=== PATIENT | male | born 2000 | race Caucasian/White ===

== ENCOUNTER 2022-08-08 10:53 | Emergency (ER) | payer MEDICAID, SELFPAY ==
[2022-08-08 10:56] VITALS: BP 113/62; PULSE 82; RESP 18; TEMP 36.4; O2SAT 97; BMI 22.4
[2022-08-08 11:16] LABS: IDNOW Serial# 08D9AD1C; Strep A Nucleic Acid Positive (Negative)
--- NOTE | 2022-08-08 12:22 | ED_ITS ---
HPI - URI/Sore Throat General Chief Complaint: Upper Respiratory Symptoms Stated Complaint: Sore throat Time Seen by Provider: 08/08/22 11:06 Source: patient Mode of arrival: ambulatory History of Present Illness HPI Narrative: 22-year-old male with no significant past medical history presenting to the ED complaining mild sore throat x a few days. Reports noted some white spots/ulcers to back of throat which were tender. Reports was recently tested for STIs, routinely, and negative for all. Denies difficulty/inability to swallow, fever, chills, cough, ear pain MD elicited complaint: sore throat Related Data Previous Rx's Medication Instructions Recorded penicillin V potassium 500 mg 500 mg PO BID 7 days #14 tabs 08/08/22 tablet Allergies Allergy/AdvReac Type Severity Reaction Status Date / Time No Known Allergies Allergy Verified 08/08/22 10:58 [No Known Allergies*] Review of Systems Review of Systems: Constitutional: No Fever, No Chills ENT/Mouth: No Ear Pain, No Nasal Congestion, No Sinus Pain, No Hoarseness, +sore throat, No Rhinorrhea, No Swallowing Difficulty Cardiovascular: No Chest Pain, No SOB Respiratory: No Cough, No Sputum, No Wheezing Gastrointestinal: No Nausea, No Vomiting, No Diarrhea, No Constipation, No Abdominal pain Genitourinary: No Dysuria, No Urinary Incontinence/retention Musculoskeletal: No joint pain, No Myalgias, No Joint Swelling Skin: No Skin Lesions, No rash Neuro: No Weakness Yes all other systems are reviewed and are negative Constitutional: Constitutional: Reports as per [facility] Past Medical History Attestation statement: The following information was validated with the patient. Social History Social History Advance Directives: No Advance Directives Information Provided: Yes Physical Exam Vital Signs: Vital Signs: Last Vital Signs Temp 97.6 F 08/08/22 10:56 Pulse 82 08/08/22 10:56 Resp 18 08/08/22 10:56 BP 113/62 08/08/22 10:56 Pulse Ox 97 08/08/22 10:56 O2 Del Method Room Air 08/08/22 10:56 BMI result Body Mass Index 22.4 Const: General: cooperative, healthy appearing, no acute distress, alert and awake Orientation/consciousness: patient oriented x3 Limitations: no limitations HEENT: Head: Yes normal to inspection and Yes atraumatic Ears: hearing grossly normal bilaterally, TM's normal bilaterally and mastoids normal General nose exam: Normal external nose present Face and sinus: Yes normal facial exam Throat: Yes uvula midline, Yes abnormal tonsil (mild swelling bilaterally ), No peritonsillar mass, Yes posterior oropharynx abnormal (erythematous, small ulcers/canker sores to left soft palate), No uvula laterally displaced and No uvular edema Eyes: General: appearance normal, both eyes and all related structures EOM: EOMs intact bilaterally Neck: Neck: Yes normal visual inspection, Yes no meningeal signs, Yes supple and No anterior neck swelling Resp: Effort & Inspection: normal respiratory effort and no respiratory distress Auscultation: clear to auscultation bilaterally Cardio: Rate: regular rate Heart sounds: S1 normal heart sound present and S2 normal heart sound present Skin: Rashes: no rashes Wounds: no wounds Neuro: General: patient oriented x3, tone normal and no meningeal signs Gait exam (Neuro): Normal gait present Extrem: General: Yes normal to inspection Course Course Course Narrative: -rapid strep positive -will hold on empiric herpes treatment until culture results Results discussed with patient including worrisome signs and symptoms and strict return precautions, and when to return to the emergency department. They verbalized understanding and feel safe for discharge at this time. Medical Decision Making Medical Decision Making [facility] Narrative: 22-year-old male with no significant past medical history presenting to the ED complaining mild sore throat x a few days. On exam vital signs stable, nontoxic appearing, uvula midline, posterior or pharyngeal erythema with mild tonsillar swelling and ulcer/canker sores noted to posterior phalanx/soft palate. No evidence of MANAGER TRAVEL. Talking in complete sentences, no stridor. Concern for strep pharyngitis vs ? Herpes. Lower suspicion for STI with recent negative testing. No evidence of MANAGER TRAVEL. Plan: Rapid strep, herpes culture Please refer to course for remaining clinical decision making, interpretation of labs/imaging results, and discussions with consultants and/or family members. Differential Diagnosis Differential Diagnoses: The differential diagnosis associated with the presentation includes As above Admission/Observation Consideration of admission/observation: Escalation of care including admission/observation considered Lab Data [facility] Lab Attestation statement: I reviewed the patient's lab results. Labs: Lab Results 08/08/22 Range/Units 11:02 S. pyogenes GrpA MOHAN Positive A (Negative) Radiology Impression Discussion of test interpretation with radiology: I have reviewed the radiologist's reading. External Record Review External record reviewed: Inpatient record, Office record, Outpatient record, Prior outpatient labs, Prior outpatient radiology, Primary care record and Outside ED record Discharge Plan Discharge Clinical Impression: Acute streptococcal pharyngitis Patient Disposition: Home, Self-Care Instructions: Strep Throat (DC) Additional Instructions: You have strep throat. Penicillin is antibiotic please take as prescribed. Gargle with warm salt water. Take Tylenol/ Motrin as needed. Follow up with her doctor. If symptoms persist or worsen return to the ED Prescriptions: New penicillin V potassium 500 mg tablet 500 mg PO BID 7 Days Qty: 14 0RF Referrals: Physician,None [Primary Care Provider] - 5 days Interventions: ED Discharge Assessment Last Done: 08/08/22 12:28 Discharge Date/Time: 08/08/22 12:29
== END 2022-08-08 12:29 | disposition home or self-care (01) ==
PROVIDERS: Physician Assistant; Emergency Provider Student in an Organized Health Care Education/Training Program
DX: J02.0 Streptococcal pharyngitis (principal)
CPT/HCPCS: 36415; 87255; 87651; 99282; 99283

== ENCOUNTER 2022-08-11 15:08 | Emergency (ER) | payer MEDICAID, SELFPAY | END 2022-08-11 17:50 | disposition left against medical advice (07) | PROVIDERS: Emergency Provider Emergency Medicine | DX: J02.0 Streptococcal pharyngitis (principal) ==

== ENCOUNTER 2022-08-12 02:33 | Emergency (ER) | payer MEDICAID, SELFPAY ==
[2022-08-12 02:45] VITALS: BP 128/83; PULSE 111; RESP 16; TEMP 36.6; O2SAT 98; BMI 22.4
[2022-08-12 03:03] LABS: Hematocrit 47.8 % (42.0-52.0); Hemoglobin 16.7 g/dl (14.0-18.0); Mean Corpuscular HGB Conc 34.9 g/dl (31.0-36.0); Mean Corpuscular Hemoglobin 29.2 pg (27.0-33.0); Mean Corpuscular Volume 83.7 fL (80.0-98.0); Mean Platelet Volume 10.3 fL (9.4-12.4); Platelet Count 319 X10*3/uL (160-400); Red Blood Count 5.71 X10*6/uL (4.60-5.80); Red Cell Distribution Width 12.2 % (11.0-16.0); White Blood Count 23.4 X10*3/uL (4.8-10.8)
--- NOTE | 2022-08-12 03:17 | ED_ITS ---
HPI - General Adult General Chief complaint: General Medical Stated complaint: hemorrhoids Time Seen by Provider: 08/12/22 02:52 History of Present Illness HPI narrative: Patient is a 22-year-old male presents today with having pain to his gluteal area. Patient claims the pain is been ongoing for a week and half. Getting worse can take it no more decided come in today. The pain is not made worse with bowel movement. Made worse with movement in general. Denies any fever chills. No systemic complaints. Has no significant past medical history. Related Data Previous Rx's Medication Instructions Recorded penicillin V potassium 500 mg 500 mg PO BID 7 days #14 tabs 08/08/22 tablet doxycycline hyclate 100 mg capsule 100 mg PO BID cough 7 days #14 caps 08/12/22 ibuprofen 400 mg tablet 400 mg PO Q6H PRN pain #20 tabs 08/12/22 Allergies Allergy/AdvReac Type Severity Reaction Status Date / Time No Known Allergies Allergy Verified 08/08/22 10:58 [No Known Allergies*] Review of Systems Review of Systems: No fever no chills no systemic complaint Yes all other systems are reviewed and are negative [facility] Past Medical History Attestation statement: The following information was validated with the patient. Social History Social History Alcohol intake: current Alcohol intake frequency: holidays/special occasions only Smoked in Last 30 Days: No Use of substances other than those prescribed or required for medical reasons: Yes Substance Use Type: Marijuana Substance Use Frequency: Daily Advance Directives: No Physical Exam ED Vital Signs: Vital Signs - 24 hr 08/12/22 02:45 Temperature 98 F Pulse Rate 111 H Respiratory Rate 16 Blood Pressure 128/83 Pulse Oximetry 98 Oxygen Delivery Method Room Air BMI result Body Mass Index 22.4 Appearance: Alert. Oriented X3. No acute distress. Eyes: Pupils equal, round and reactive to light. ENT: Pharynx normal. Neck: Normal inspection. Neck supple. No lymph nodes noted. No crepitus CVS: Normal heart rate and rhythm. Pulses normal. Normal S1 and S2 Respiratory: No respiratory distress. Breath sounds normal. No Wheezing. No rales Abdomen: Soft and nontender. No rigidity. No distention. good BS x4 Skin: Skin warm and dry. Normal skin color. Normal skin turgor. Rectal exam showed normal anus. In the area just inferior to the anus there is an large indurated fluctuant mass that is approximately 4 cm x 3 cm in size. Not affecting the anus. Extremities: No lower extremity edema. Neurovascular intact to all extremities. No Lacerations. No Rash Neuro: Oriented X 3. No motor deficit. No sensory deficit. Moving all extermities. No slurred speech Medications Administered Discontinued Medications Generic Name Dose Route Start Last Admin Trade Name Claudia PRN Reason Stop Dose Admin Lidocaine HCl 10 ml 08/12/22 03:16 08/12/22 03:29 Lidocaine Hcl 1 % Mpf 5 Ml Vial SUBCUT 08/12/22 03:17 10 ml ONCE ONE Administration Procedures Abscess I/D Site: danny-rectal Side (if applicable): left Local Anesthetic: lidocaine 1% Amount of anesthesia used (mL): 10 Technique: needle aspiration and incised with blade Amount of fluid expressed (mL): 15 Sent for culture/gram staining?: Yes Irrigation: Yes Packing used?: plain Medical Decision Making Medical Decision Making [facility] Narrative: Patient's symptoms consistent with having a large abscess to the gluteal area. Case discussed with patient. Risk and benefit of IN D discussed. Patient agreed to the procedure. Will drain the abscess. Will have patient follow-up on an outpatient basis in 2 days. Will start antibiotic on an outpatient basis. In stable condition. Differential Diagnosis Differential Diagnoses: The differential diagnosis associated with the presentation includes Abscess, hemorrhoid Lab Data [facility] Lab Attestation statement: I reviewed the patient's lab results. 08/12/22 02:57 08/12/22 02:57 Labs: Lab Results 08/12/22 08/12/22 Range/Units 02:57 02:57 WBC 23.4 H (4.8-10.8) X10*3/uL RBC 5.71 (4.60-5.80) X10*6/uL Hgb 16.7 (14.0-18.0) g/dl Hct 47.8 (42.0-52.0) % MCV 83.7 (80.0-98.0) fL MCH 29.2 (27.0-33.0) pg MCHC 34.9 (31.0-36.0) g/dl RDW 12.2 (11.0-16.0) % Plt Count 319 (160-400) X10*3/uL MPV 10.3 (9.4-12.4) fL Absolute Nucleated RBC 0.000 (0.0-0.012) X10*3/uL Nucleated RBC % (auto) 0.0 (0.0-0.2) /100WBC Sodium 132 L (135-145) mmol/L Potassium 3.8 (3.3-5.1) mmol/L Chloride 96 (96-108) mmol/L Carbon Dioxide 21 L (22-29) mmol/L Anion Gap 19 (12-20) BUN 21 H (9-16) mg/dL Creatinine 1.28 (0.5-1.4) mg/dL Estim Creat Clear Calc 95.0 Estimated GFR > 60 Random Glucose 124 H (60-115) mg/dL Calcium 9.6 (8.4-10.2) mg/dL Total Bilirubin 0.7 (0.0-1.0) mg/dL AST 14 (5-37) U/L ALT 10 (0-40) U/L Alkaline Phosphatase 108 (39-117) U/L Total Protein 8.1 H (6.5-8.0) g/dL Albumin 4.5 (3.5-5.0) g/dL Discharge Plan Discharge Clinical Impression: Abscess, Encounter for incision and drainage procedure Patient Disposition: Home, Self-Care Instructions: Abscess (ED), Abscess Follow-up (ED), Incision and Drainage (ED) Prescriptions: New doxycycline hyclate 100 mg capsule 100 mg PO BID 7 Days Qty: 14 0RF ibuprofen 400 mg tablet 400 mg PO Q6H PRN (Reason: pain) Qty: 20 0RF No Action penicillin V potassium 500 mg tablet 500 mg PO BID 7 Days Qty: 14 0RF Referrals: Dominguez,Syeda Kline MD [Emergency Provider] - 08/15/22
[2022-08-12 03:23] LABS: Alanine Aminotransferase 10 U/L (0-40); Albumin Level 4.5 g/dL (3.5-5.0); Alkaline Phosphatase 108 U/L (39-117); Anion Gap 19 (12-20); Aspartate Amino Transferase 14 U/L (5-37); Bilirubin Total 0.7 mg/dL (0.0-1.0); Blood Urea Nitrogen 21 mg/dL (9-16); Calcium 9.6 mg/dL (8.4-10.2); Carbon Dioxide 21 mmol/L (22-29); Chloride 96 mmol/L (96-108); Estimated Glomerular Filt Rate > 60; Glucose Random 124 mg/dL (60-115); Potassium 3.8 mmol/L (3.3-5.1); Sodium 132 mmol/L (135-145); Total Protein 8.1 g/dL (6.5-8.0)
[2022-08-12] MEDS: Lidocaine HCl 1 % MPF 5 ML VIAL 10 ML SUBCUT (03:29)
[2022-08-12 05:11] VITALS: BP 120/70; PULSE 82; RESP 16; O2SAT 96
[2022-08-12] MEDS: Ibuprofen 400 MG TABLET PO (05:13)
[2022-08-12] MEDS: Doxycycline Monohydrate 100 MG CAPSULE PO (05:15)
== END 2022-08-12 06:35 | disposition home or self-care (01) ==
PROVIDERS: Emergency Provider Emergency Medicine Emergency Medical Services
DX: K61.1 Rectal abscess (principal); Z79.899 Other long term (current) drug therapy
CPT/HCPCS: 36415; 46040; 46050; 80053; 85027; 87070; 87205; 99284

== ENCOUNTER 2024-09-28 20:33 | Emergency (ER) | payer MEDICAID, SELFPAY ==
--- NOTE | 2024-09-28 20:40 | ED_ITS ---
HPI - General Adult General Chief complaint: General Medical Stated complaint: sti testing Related Data Previous Rx's ?Medication ?Instructions ?Recorded penicillin V potassium 500 mg 500 mg PO BID 7 days #14 tabs 08/08/22 tablet doxycycline hyclate 100 mg capsule 100 mg PO BID cough 7 days #14 caps 08/12/22 ibuprofen 400 mg tablet 400 mg PO Q6H PRN pain #20 tabs 08/12/22 Allergies Allergy/AdvReac Type Severity Reaction Status Date / Time No Known Allergies Allergy Verified 09/28/24 20:44 [No Known Allergies*] [facility] Social History Social History Alcohol intake: current Alcohol intake frequency: holidays/special occasions only Substance Use Type: Marijuana Advance Directives: No Do you have a plan to hurt others: No Plan Physical Exam ED Vital Signs: BMI result Body Mass Index 22.3 Course Course Course Narrative: This is a rapid medical exam performed by Deny Fall NP: Additional HPI, ROS, PE not included below will be deferred to primary provider. Patient is a 24-year-old male presenting to the ED requesting STI testing. Denies any symptoms. Reports that he wants to be tested because he had a new partner recently. Plan: CT NG, UA, HIV, hep panel, RPR Medical Decision Making Lab Data Labs: Lab Results 09/28/24 Range/Units 20:50 Urine Color Yellow Urine Appearance Clear Urine pH 6.0 (5.0-9.0) Ur Specific [place] <= 1.005 (1.005-1.025) Urine Protein Negative (Neg-Trace) mg/dL Urine Glucose (UA) Negative (Negative) mg/dL Urine Ketones Negative (Negative) mg/dL Urine Blood Negative (Negative) Urine Nitrite Negative (Negative) Ur Leukocyte Esterase Negative (Negative) T.pallidum Ab (EIA) Nonreactive (Nonreactive) Chlam trachomat DNA PCR NOT DETECTED (Not Detect.) Hepatitis A IgM Ab Nonreactive (Nonreactive) Hep Bs Antigen Negative (Negative) Hep Bs Antibody GRAYZONE (Nonreactive) Hep B Core Total Ab Nonreactive (Nonreactive) Hepatitis C Ab (EIA) Nonreactive (Nonreactive) HIV 1&2 Ab/P24 Ag 4thGn Nonreactive (Nonreactive) N.gonorrhoeae DNA (PCR) NOT DETECTED (Not Detect.) Discharge Plan Discharge Clinical Impression: Concern about sexually transmitted infection in male without diagnosis Patient Disposition: Left W/O Completing Treatment Prescriptions: No Action penicillin V potassium 500 mg tablet 500 mg PO BID 7 Days Qty: 14 0RF doxycycline hyclate 100 mg capsule 100 mg PO BID 7 Days Qty: 14 0RF ibuprofen 400 mg tablet 400 mg PO Q6H PRN (Reason: pain) Qty: 20 0RF Discharge Date/Time: 09/29/24 00:00
[2024-09-28 20:41] VITALS: BP 131/76; PULSE 96; RESP 20; TEMP 36.1; O2SAT 96; BMI 22.3
[2024-09-28 20:58] LABS: Appearance Urine Clear; Color Urine Yellow; Glucose Urine UA Negative (Negative); Leukocyte Esterase Urine Negative (Negative); Nitrite Urine Negative (Negative); Specific Gravity - Urine <= 1.005 (1.005-1.025); Urine Blood Negative (Negative); Urine Ketones Negative (Negative); Urine Protein Negative (Neg-Trace)
[2024-09-29 08:33] LABS: Syphilis Screen Nonreactive (Nonreactive)
[2024-09-29 09:01] LABS: HBS Num1 9.74 mIU/mL (0-7.99); HBc Num1 0.03 S/CO (0.00-0.79); HIV AB/AG Nonreactive (Nonreactive); HIV Num 1 0.06 S/CO (0.00-0.99); Hepatitis A Antibody IgM 0.21 Index (0-0.79); Hepatitis B Core Antibody Nonreactive (Nonreactive); Hepatitis B Surface Antigen Negative (Negative); ~HepC Num1 0.08 S/CO (0.00-0.79); ~Hepatitis A Antibody IgM Nonreactive (Nonreactive); ~Hepatitis C Antibody Nonreactive (Nonreactive)
[2024-09-29 11:51] LABS: HBS Num2 10.18 mIU/mL (0-7.99); HBS Num3 9.75 mIU/mL (0-7.99); ~Hepatitis B Surface Antibody GRAYZONE (Nonreactive)
[2024-09-29 12:10] LABS: CT PCR NOT DETECTED (Not Detect.); NG PCR NOT DETECTED (Not Detect.)
== END 2024-09-29 | disposition left against medical advice (07) ==
LOC: HO.ED 23:51
PROVIDERS: Registered Nurse Emergency; Emergency Provider Emergency Medicine
DX: Z20.2 Contact with and (suspected) exposure to infections with a predominantly sexual mode of transmission (principal)
CPT/HCPCS: 36415; 81003; 86704; 86706; 86709; 86780; 86803; 87340; 87389; 87491; 87591; 99282; 99283